=== PATIENT | female | born 1990 | race Caucasian/White ===

== ENCOUNTER 2023-08-17 09:00 | Outpatient (CLI) | payer OTHER ==
[2023-08-18 00:46] LABS: BACTERIAL VAGINOSIS DNA UNRESOLVED (NEGATIVE); CANDIDA GROUP DNA UNRESOLVED (NEGATIVE); CANDIDA KRUSEI DNA UNRESOLVED (NEGATIVE); TRICHOMONAS VAGINALIS DNA UNRESOLVED (NEGATIVE)
[2023-08-18 00:48] LABS: CANDIDA GLABRATA DNA UNRESOLVED (NEGATIVE)
== END 2023-08-17 09:15 | disposition home or self-care (01) ==
LOC: LAB.N 09:00
PROVIDERS: ATTEND Physician Assistant Medical
DX: N39.0 Urinary tract infection, site not specified (principal); L29.8 Other pruritus
CPT/HCPCS: 81514; 87086

== ENCOUNTER 2023-08-25 13:27 | Emergency (ER) | payer OTHER ==
[2023-08-25 13:45] VITALS: BP 134/79; O2SAT 98
[2023-08-25 13:57] LABS: BILIRUBIN,URINE MODERATE (NEGATIVE); GLUCOSE, URINE (UA) NEGATIVE (NEGATIVE); KETONES,URINE (UA) TRACE mg/dL (NEGATIVE); LEUKOCYTE ESTERASE, URINE SMALL (NEGATIVE); NITRITE,URINE POSITIVE (NEGATIVE); OCCULT BLOOD,URINE TRACE-INTA (NEGATIVE); PH,URINE 6.5 PH (5.0-7.5); PROTEIN,URINE 30 mg/dL (NEGATIVE); UROBILINOGEN,URINE 1 (NORMAL) E.U./dL (NORMAL)
[2023-08-25 13:59] LABS: CLARITY,URINE HAZY (CLEAR)
--- NOTE | 2023-08-25 14:09 | ED Physician Documentation ---
PD HPI FEMALE - Stated complaint Stated Complaint: FEMALE - Chief complaint Chief Complaint: Abd Pain - History obtained from History obtained from: Patient - Additional information Additional information: This is a 33-year-old female who presents with a sore on the left side of the labia. She states she had unprotected intercourse with a new partner about a week and a half ago and then a few days later developed soreness on the left labia did ultimately turn into an open sore. It she was seen at the [facility] clinic and they did various different test for gonorrhea, chlamydia, HIV which were negative, and she was given some different creams for possible yeast infection and this has not helped. She continues to have soreness and mild swelling of the left labia. She has some nonodorous vaginal discharge, and dysuria due to the sore but no urgency or frequency, no flank pain, no fever chills or flulike symptoms. She has never had something like this before.r Review of Systems Constitutional: reports: Reviewed and negative Cardiac: reports: Reviewed and negative Respiratory: reports: Reviewed and negative GI: reports: Reviewed and negative : reports: Dysuria, Discharge Skin: reports: Lesions PD PAST MEDICAL HISTORY - Past Medical History Past Medical History: No - Past Surgical History Past Surgical History: No - Present Medications Home Medications: Ambulatory Orders Medication Instructions Recorded Confirmed Nitrofurantoin [Macrobid] 100 mg PO BID 5 Days #10 cap 08/25/23 Valacyclovir HCl [Valtrex] 1,000 mg PO BID #20 tablet 08/25/23 - Allergies Allergies/Adverse Reactions: Allergies Allergy/AdvReac Type Severity Reaction Status Date / Time No Known Drug Allergies Allergy Verified 08/25/23 13:42 - Social History Does the pt smoke?: No Smoking Status: Never smoker Does the pt drink ETOH?: Yes Does the pt have substance abuse?: No PD ED PE NORMAL - Vitals Vital signs reviewed: Yes - General General: Alert and oriented X 3, No acute distress, Well developed/nourished - Cardiac Cardiac: RRR, No murmur - Respiratory Respiratory: No respiratory distress, Clear bilaterally - Abdomen Abdomen: Normal bowel sounds, Soft, Non tender, Non distended - Female Female : Other (There is a flat open ulceration approximate the 1/2 x 1 cm on the left labia, no palpable abscess or mass. Tender to touch.) - Back Back: No CVA TTP, No spinal TTP - Derm Derm: Normal color, Warm and dry, No rash - Neuro Neuro: Alert and oriented X 3 Eye Opening: Spontaneous Motor: Obeys Commands Verbal: Oriented GCS Score: 15 Results - Vitals Vitals: Vital Signs - 24 hr 08/25/23 13:37 Temperature 36.4 C L Heart Rate 112 H Respiratory 18 Rate Blood Pressure 134/79 H O2 Saturation 98 Oxygen O2 Source Room air - Labs Labs: Laboratory Tests 08/25/23 13:51 Urine Color DARK YELLOW Urine Clarity HAZY Urine pH 6.5 Ur Specific [place] 1.025 Urine Protein 30 H Urine Glucose (UA) NEGATIVE Urine Ketones TRACE Urine Occult Blood TRACE-INTA Urine Nitrite POSITIVE H Urine Bilirubin MODERATE H Urine Urobilinogen 1 (NORMAL) Ur Leukocyte Esterase SMALL H Ur Microscopic Review INDICATED Urine Culture Comments Not Reportable PD Medical Decision Making - ED course Complexity details: reviewed results, considered differential, d/w patient ED course: 32-year-old female presents with an ulceration on the left labia that has been present now for about a week. She was seen in the clinic and given various different ointments that have not been helpful. Her gonorrhea and Chlamydia test were apparently negative. She is here with ongoing soreness in the area, no systemic symptoms. She did recently have a new sexual partner and is concerned about possible STI. On exam, patient has a flat laceration on the left labia, no mass or abscess. I discussed with patient that this lesion is likely a herpetic lesion and I recommended that we treat with valacyclovir pending lab testing. I did not repeat gonorrhea and Chlamydia testing as this is already done. I do recommend that patient have repeat HIV testing after 6 weeks. I discussed supportive measures for possible herpetic lesion. Her urinalysis also shows possible UTI though is contaminated with many squamous epithelial cells. I think less likely UTI as patient's not having urgency or frequency though does have dysuria secondary to ulceration, but I have given her 5 days of Macrobid as well. She was advised to follow-up with gynecology if no improvement in the next week or so and return precautions reviewed. Departure - Departure Disposition: 01 Home, Self Care Clinical Impression: Genital sore Condition: Good Instructions: ED Herpes Simplex Virus Type 2 Prescriptions: Valacyclovir HCl [Valtrex] 1,000 mg PO BID #20 tablet Comments: Your ulcer may be due to HSV which is a herpetic lesion. They are very common and usually respond well to medicine. I have started you on valacyclovir while we wait for the culture. In the meantime, you can take tylenol or ibuprofen for pain and I usually recommend that people get a bottle of warm water to pour over the vaginal area when urinating to decrease the pain. You can also try a topical barrier cream like desitin which can help reduce the pain when anything touches it. It should improve in the next week. If not, please see a gynec ologist for re-evaluation. Medication sent to [facility] pharmacy. Forms: PCP List
[2023-08-25] MEDS: valACYclovir 500 MG TABLET PO STA (14:15)
[2023-08-25 14:24] LABS: RBC,URINE 0-5 /HPF (0-5); WBC,URINE >25 /HPF (0-5)
[2023-08-25 14:25] LABS: BACTERIA,URINE Many /HPF (None Seen); MUCUS,URINE Marked Strands; SQUAMOUS EPITHELIAL CELL,UR MANY Squamous (<= Few)
[2023-08-26 06:11] LABS: HSV 1 IGG TYPE SPEC 9.33 index (0.00-0.90); HSV 2 IGG TYPE SPEC <0.91 index (0.00-0.90)
== END 2023-08-25 14:50 | disposition home or self-care (01) ==
LOC: ED 13:27
DX: N76.6 Ulceration of vulva (principal)
CPT/HCPCS: 36415; 81001; 81003; 86695; 86696; 87086; 87529; 99283